=== PATIENT | male | born 1985 | race Caucasian/White ===

== ENCOUNTER 2018-07-22 17:48 | Emergency (ER) ==
[2018-07-22 17:52] VITALS: BP 125/85; TEMP 97.7; BMI 33.4
--- NOTE | 2018-07-22 18:19 | CT ---
Exam: CT of the abdomen and pelvis without contrast History: Lower abdomen pain Technique: [address] of the abdomen and pelvis without intravascular contrast FINDINGS: The lung bases are clear. No significant liver abnormality. The adrenals, pancreas and s pleen are unremarkable. The stomach and hiatus are unremarkable.The gallbladder appears normal. Kid neys and proximal collecting system are unremarkable. The appendix is normal. Bowel loops demonstra te normal caliber. No inflamatory change seen in the mesentery or retroperitoneum. Vascular structu res appear normal by noncontrast CT. Colonic diverticulosis of the sigmoid. Focal inflammation adjacent to the sigmoid colon with central offending diverticula. No abscess cavity or extraluminal gas. Normal pelvic genitourinary structur es. No free pelvic fluid. No acute findings of the skeleton. Impression: 1. Colonic diverticulosis of the sigmoid. There is focal pericolonic inflammation and central offen ding diverticula consistent with acute diverticulitis. No abscess or free intraperitoneal gas. Gene rally mild inflammatory changes.
--- NOTE | 2018-07-22 18:33 | ED.PDOC ---
General ED Provider: Dr. WILFREDO SHELLEY-ER Chief Complaint: Abdominal Pain Stated Complaint: im hurting down low Time Seen by Physician: 18:31 Mode of Arrival: Walk-In Information Source: Patient Exam Limitations: No limitations Primary Care Provider: TRACI GOLDBERG Nursing and Triage Documentation Reviewed and Agree: Yes Does patient meet sepsis criteria?: No System Inflammatory Response Syndrome: Not Applicable Sepsis Protocol: For patient's 13 years and over: Temp is 96.8 and below OR 101 and greater Pulse >90 BPM Resp >20/minute Acutely Altered Mental Status Are patient's symptoms suggestive of a new infection, such as: -Pneumonia -Skin, Soft Tissue -Endocarditis -UTI -Bone, Joint Infection -Implantable Device -Acute Abdominal Infection -Wound Infection -Meningitis -Blood Stream Catheter Infection -Unknown GI Complaint Exam - Abdominal Pain Complaint/Exam Onset: Gradual Duration: 2-=3 days Symptoms Are: Still present Timing: Constant Initial Severity: Mild Current Severity: Mild Location of Pain: Suprapubic Character: Reports: Dull, Aching, Cramping Alleviating: Reports: Spontaneous resolution Associated Signs and Symptoms: Denies: Diaphoresis, Fever, Cough, Chest pain, Dizziness, Back pain, Constipation, Blood in stool, Dysuria, Urinary frequency, Decreased urine output, Decreased appetite, Discharge, Nausea, Vomiting, Diarrhea, Decreased activity Abdominal Findings: Present: None Differential Diagnoses: Diverticulitis Review of Systems - Review Of Systems Constitutional: Reports: No symptoms Eyes: Reports: No symptoms Ears, Nose, Mouth, Throat: Reports: No symptoms Respiratory: Reports: No symptoms Cardiac: Reports: No symptoms GI: Reports: Abdominal pain : Reports: No symptoms Musculoskeletal: Reports: No symptoms Skin: Reports: No symptoms Neurological: Reports: No symptoms Endocrine: Reports: No symptoms Hematologic/Lymphatic: Reports: No symptoms All Other Systems: Reviewed and Negative Past Medical History - Past Medical History Previously Healthy: Yes Endocrine: Reports: Unknown Cardiovascular: Reports: Unknown Respiratory: Reports: Unknown Hematological: Reports: Unknown Gastrointestinal: Reports: Unknown Genitourinary: Reports: Unknown Neuro/Psych: Reports: Unknown Musculoskeletal: Reports: Unknown Cancer: Reports: Unknown - Surgical History General Surgical History: Reports: Unknown - Family History Family History: Reports: Unknown - Social History Smoking Status: Never smoker Hx Substance Use: No Alcohol Screening: Occasionally Physical Exam - Physical Exam Appearance: Well-appearing, No pain distress, Well-nourished Pain Distress: Mild Eyes: CHAVA, EOMI, Conjunctiva clear ENT: Ears normal Neck: Supple Respiratory: Airway patent Cardiovascular: RRR, Pulses normal, No rub, No murmur GI/: Soft, Nontender, No masses, Bowel sounds normal, No Organomegaly Musculoskeletal: Normal strength, ROM intact, No edema, No calf tenderness Skin: Warm, Dry, Normal color Neurological: Sensation intact Psychiatric: Affect appropriate Interpretation - Radiology Interpretation Radiology Interpretation By: Radiologist Radiology Results: Positive Exam Interpreted: CT Scan Critical Care Note - Critical Care Note Total Time (mins): 0 Course - Course Hematology/Chemistry: 07/22/18 18:00 07/22/18 18:00 Orders, Labs, Meds: Lab Review 07/22/18 07/22/18 07/22/18 18:00 18:00 18:02 WBC 8.20 RBC 4.97 Hgb 15.4 Hct 42.8 MCV 86.1 MCH 31.0 MCHC 36.0 H RDW Coeff of Cathleen 11.7 Plt Count 244 Immature Gran % (Auto) 0.1 Neut % (Auto) 53.0 Lymph % (Auto) 34.3 [place] % (Auto) 10.5 H Eos % (Auto) 1.7 Baso % (Auto) 0.4 Immature Gran # (Auto) 0.0 Neut # (Auto) 4.4 Lymph # (Auto) 2.8 [place] # (Auto) 0.9 Eos # (Auto) 0.1 Baso # (Auto) 0.0 ESR Pending Sodium 138.0 Potassium 3.88 Chloride 100.9 Carbon Dioxide 28.3 Anion Gap 12.68 BUN 19.3 Creatinine 1.00 Estimated GFR (MDRD) 86.00 BUN/Creatinine Ratio 19.30 Glucose 92.2 Calcium 9.03 Total Bilirubin 0.91 AST 51.1 ALT 51.1 H Alkaline Phosphatase 75.5 Total Protein 8.15 Albumin 4.57 Globulin 3.58 Albumin/Globulin Ratio 1.27 Amylase 86.1 Lipase 71.2 Urine Color Yellow Urine Clarity Clear Urine pH 7.0 Ur Specific [place] 1.010 Urine Protein Negative Urine Glucose (UA) Negative Urine Ketones Negative Urine Blood Negative Urine Nitrite Negative Urine Bilirubin Negative Urine Urobilinogen 0.2 Ur Leukocyte Esterase Negative Orders Category Date Time Status AMYLASE Stat LAB 07/22/18 18:00 Completed CBC W/ AUTO DIFF Stat LAB 07/22/18 18:00 Results COMPREHENSIVE METABOLIC PANEL Stat LAB 07/22/18 18:00 Completed ESR Stat LAB 07/22/18 18:00 Results LIPASE Stat LAB 07/22/18 18:00 Completed URINALYSIS C & S IF INDICATED Stat LAB 07/22/18 18:[address] ABDOMEN/PELVIS WO CONTRAST Stat RADS 07/22/18 17:53 Completed Vital Signs: Temp Pulse Resp BP Pulse Ox 07/22/18 17:49 97.7 F 78 20 125/85 95 Departure - Departure Time of Disposition: 18:32 Disposition: HOME SELF-CARE Discharge Problem: Diverticulitis Instructions: Diverticulitis (ED), Diverticulitis Diet (ED) Condition: Good Pt referred to PMD for follow-up: Yes IPMP verified?: No Additional Instructions: clear liquids and advance---cipro 500mg bid x 10 days plus flagyl 500mg tid x 10 days---f/u evelyn goldberg next week---if temp over 101 or vomiting return Allergies/Adverse Reactions: Allergies Penicillins Allergy (Severe, Verified 07/22/18 17:52) unsure Home Medications: Ambulatory Orders 1 [No Reported Medications] 07/22/18 Disposition Discussed With: Patient, Family
== END 2018-07-22 18:40 | disposition home or self-care (01) ==
LOC: ED 17:48
DX: R10.30 Lower abdominal pain, unspecified (principal); K57.92 Diverticulitis of intestine, part unspecified, without perforation or abscess without bleeding
CPT/HCPCS: 36415; 80053; 81001; 82150; 83690; 85025; 85651; 99283